=== PATIENT | male | born 1995 | race Caucasian/White ===

== ENCOUNTER 2017-04-07 14:16 | Emergency (ER) | payer OTHER ==
[2017-04-07 14:55] VITALS: BP 123/70; PULSE 87; RESP 20; TEMP 97.8; O2SAT 97
== END 2017-04-07 16:58 | disposition home or self-care (01) | DRG 918 ==
LOC: ED 14:16
DX: T65.891A Toxic effect of other specified substances, accidental (unintentional), initial encounter (principal)
CPT/HCPCS: 99282

== ENCOUNTER 2017-05-29 05:48 | Emergency (ER) | payer SELFPAY ==
[2017-05-29 06:15] VITALS: BP 126/75; PULSE 86; RESP 18; TEMP 98.4; O2SAT 99
== END 2017-05-29 06:33 | disposition home or self-care (01) | DRG 125 ==
LOC: ED 05:48
DX: H10.33 Unspecified acute conjunctivitis, bilateral (principal)
CPT/HCPCS: 99282

== ENCOUNTER 2017-06-12 18:29 | Emergency (ER) | payer MEDICAID ==
[2017-06-12 19:36] VITALS: TEMP 97.8
[2017-06-12] MEDS ORDERED: ALBUTEROL NEB SOL 2.5MG/3ML 1 VIAL SOL NEB ONE (19:49)
[2017-06-12] MEDS ORDERED: ALBUTEROL NEB SOL 2.5MG/3ML 1 VIAL SOL ONE (19:54)
[2017-06-12 20:12] VITALS: RESP 18
[2017-06-12 20:51] VITALS: BP 132/66; PULSE 89; O2SAT 96
== END 2017-06-12 20:45 | disposition home or self-care (01) | DRG 203 ==
LOC: ED 18:29
DX: J45.909 Unspecified asthma, uncomplicated (principal); L02.426 Furuncle of left lower limb; L05.91 Pilonidal cyst without abscess
CPT/HCPCS: 87804; 99283; 99284; J7603

== ENCOUNTER 2017-06-17 20:30 | Emergency (ER) | payer MEDICAID ==
[2017-06-17 21:44] VITALS: BP 120/53; PULSE 77; RESP 20; TEMP 97.4; O2SAT 93
== END 2017-06-17 22:24 | disposition home or self-care (01) | DRG 395 ==
LOC: ED 20:30
DX: T18.9XXA Foreign body of alimentary tract, part unspecified, initial encounter (principal)
CPT/HCPCS: 74019; 99282

== ENCOUNTER 2017-06-18 22:51 | Emergency (ER) | payer MEDICAID ==
[2017-06-18 23:22] VITALS: TEMP 98
[2017-06-19 00:07] VITALS: BP 120/78; PULSE 77; RESP 18; O2SAT 95
== END 2017-06-19 00:20 | disposition home or self-care (01) | DRG 392 ==
LOC: ED 22:51
DX: R11.10 Vomiting, unspecified (principal); F41.1 Generalized anxiety disorder
CPT/HCPCS: 71046; 99282

== ENCOUNTER 2017-07-30 00:33 | Emergency (ER) | payer MEDICAID ==
[2017-07-30 00:42] VITALS: RESP 16; TEMP 97.5
[2017-07-30 01:31] VITALS: BP 134/93; PULSE 94; O2SAT 96
== END 2017-07-30 01:14 | disposition home or self-care (01) | DRG 156 ==
LOC: ED 00:33
DX: H60.92 Unspecified otitis externa, left ear (principal)
CPT/HCPCS: 99282